=== PATIENT | female | born 1965 | race Caucasian/White ===

== ENCOUNTER → 2018-04-29 | Outpatient (CLI) | payer BC ==
--- NOTE | 2018-04-29 17:56 | KCIC ---
CT scan of the sinuses without contrast 04/29/2018 CLINICAL HISTORY: Chronic sinusitis. TECHNIQUE: Unenhanced, contiguous, 0.6 mm axial sections were obtained through the paranasal sinuses. 1 mm reconstructed sagittal, axial and coronal images were obtained. One or more of the following individualized dose reduction techniques were utilized for this study: 1. Automated exposure control. 2. Adjustment of the mA and/or kV according to patient size. 3. Use of iterative reconstruction technique. FINDINGS: The paranasal sinuses are well aerated and are clear. The middle ear cavities and mastoid air cells are well aerated and are clear. The ostiomeatal units are patent bilaterally. There are small to moderate-sized bilateral dominguez bullosa, right greater than left. No air-fluid level is seen. IMPRESSION: There is no CT evidence of sinusitis. Electronically signed by: Noe Floyd MD (04/29/2018 5:53 PM) [id number]
== END | disposition home or self-care (01) ==
LOC: KCIC CT 10:58
PROVIDERS: ATTEND Otolaryngology
DX: J32.9 Chronic sinusitis, unspecified (principal)
CPT/HCPCS: 70486